=== PATIENT | male | born 1960 | race Caucasian/White ===

== ENCOUNTER 2017-08-18 06:47 | Emergency (ER) | payer MEDICAID ==
[~2017-08-18] VITALS: Ht 190.5 cm; Wt 111.1 kg
[~2017-08-18 06:47] MED LIST: DOXY75CA4
[2017-08-18 07:19] VITALS: BP 136/85
[2017-08-18] MEDS ORDERED: LIDOCAINE 1% HCL (LOCAL ANESTH.) INJ 20ML MDV ONE (07:49)
[2017-08-18] MEDS ORDERED: BACITRACIN-POLYMYXIN B TOPICAL OINT UD TOP ONE ×2 (08:07→08:15)
== END 2017-08-18 08:39 | disposition home or self-care (01) ==
LOC: ER 06:47
DX: S81.811A Laceration without foreign body, right lower leg, initial encounter (principal); Z79.899 Other long term (current) drug therapy; F17.210 Nicotine dependence, cigarettes, uncomplicated; W01.0XXA Fall on same level from slipping, tripping and stumbling without subsequent striking against object, initial encounter; Y93.01 Activity, walking, marching and hiking; Y92.89 Other specified places as the place of occurrence of the external cause; Y99.8 Other external cause status
CPT/HCPCS: 12005; 99283; J2001

== ENCOUNTER 2017-08-21 13:22 | Emergency (ER) | payer MEDICAID ==
[~2017-08-21] VITALS: Ht 190.5 cm; Wt 111.1 kg
[2017-08-21 14:26] VITALS: BP 123/81
[2017-08-21] MEDS ORDERED: NEOMYCIN-BACITRACIN-POLYM UNITDOSE PKG TOP OINT TOP ONE (15:00)
== END 2017-08-21 15:17 | disposition home or self-care (01) ==
LOC: ER 13:22
DX: S81.811D Laceration without foreign body, right lower leg, subsequent encounter (principal); F17.210 Nicotine dependence, cigarettes, uncomplicated; Z79.899 Other long term (current) drug therapy; Z48.02 Encounter for removal of sutures

== ENCOUNTER 2017-09-05 20:08 | Emergency (ER) | payer MEDICAID ==
[~2017-09-05] VITALS: Ht 190.5 cm; Wt 113.4 kg
[2017-09-05 21:28] VITALS: BP 130/82
[2017-09-05] MEDS ORDERED: cefTRIAXone SOD 1,000 MG VL ONE (22:27)
[2017-09-05] MEDS ORDERED: LIDOCAINE 1% HCL (LOCAL ANESTH.) INJ 20ML MDV ONE (22:28)
[2017-09-05] MEDS ORDERED: cefTRIAXone W LIDOCAINE 1 GM IM IM ONE (22:30)
== END 2017-09-05 22:48 | disposition home or self-care (01) ==
LOC: ER 20:08
DX: S81.811D Laceration without foreign body, right lower leg, subsequent encounter (principal); L03.115 Cellulitis of right lower limb; F17.210 Nicotine dependence, cigarettes, uncomplicated; X58.XXXD Exposure to other specified factors, subsequent encounter
CPT/HCPCS: 96372; 99283; J0696; J2001

== ENCOUNTER 2018-05-25 18:16 | Inpatient (IN) | payer SELFPAY ==
[~2018-05-25] VITALS: Ht 190.5 cm; Wt 117.3 kg
[2018-05-25] MEDS ORDERED: IBUPROFEN 600 MG TAB PO ONE (18:30)
[2018-05-25] MEDS ORDERED: VANCOMYCIN 1GM/250ML 250 ML IV ONE (19:00)
[2018-05-25] MEDS ORDERED: ACETAMINOPHEN 325 MG TAB PO ONE (19:00)
[2018-05-25] MEDS ORDERED: SODIUM CHLORIDE 0.9% 1,000 ML IV ONE (19:00)
[2018-05-25] MEDS ORDERED: PROMETHAZINE W/CODEINE 5 ML ORAL SYRUP PO ONE (19:00)
[2018-05-25] MEDS ORDERED: cefTRIAXone 1GM/10ml IVPUSH 10 ML IV ONE (19:00)
[2018-05-25] MEDS ORDERED: fentaNYL CITRATE 100 MCG/2 ML VL IV ONE (19:00)
[2018-05-25] MEDS ORDERED: KETOROLAC TROMETH 30 MG/ML 1ML VIAL IV ONE (19:00)
[2018-05-25 19:46] LABS: Basophils # (auto) 0.1 uL; Basophils % (auto) 0.4 % (0.0-2.0); Eosinophils # (auto) 0 uL; Eosinophils % (auto) 0.1 % (0.0-7.0); Hematocrit 42.6 % (41.0-53.0); Hemoglobin 14.6 g/dL (13.5-17.5); Lymphocytes # (auto) 0.8 uL; Lymphocytes % (auto) 6.7 % (10.0-50.0); Mean Corpuscular Hemoglobin 30.3 pg (28.0-32.0); Mean Corpuscular Hgb Conc. 34.3 g/dL (32.0-36.0); Mean Corpuscular Volume 88.3 fL (80.0-100.0); Monocytes # (auto) 0.9 uL; Monocytes % (auto) 7.4 % (0.0-12.0); Neutrophils # (auto) 10.6 uL; Neutrophils % (auto) 85.4 % (37.0-80.0); Nucleated Red Blood Cells % 0.1 %; Platelet Count (auto) 177 10^3/uL (140-450); Red Blood Cells 4.82 10^6/uL (4.5-5.90); Red Cell Distribution Width 14.5 % (11.8-14.3); White Blood Cell 12.4 10^3/uL (4.4-10.8)
[2018-05-25] MEDS ORDERED: ONDANSETRON HCL 4 MG/2 ML VIAL IV PRN (20:00)
[2018-05-25] MEDS ORDERED: MORPHINE SULF INJ 2 MG/ML SYRINGE 1ML IV PRN (20:00)
[2018-05-25] MEDS ORDERED: ACETAMINOPHEN 325 MG TAB PO PRN (20:00)
[2018-05-25] MEDS ORDERED: ALBUTEROL SULF 2.5 MG/0.5ML(0.5%) NEB SOLN NEB PRN (20:00)
[2018-05-25] MEDS ORDERED: TEMAZEPAM 15 MG CAP PO PRN (20:00)
[2018-05-25 20:07] LABS: Albumin 3.2 g/dL (3.4-5.0); BUN/Creatinine Ratio 13.3; Bilirubin, Total 0.9 mg/dL (0.2-1.0); Calcium 8.4 mg/dL (8.5-10.1); Lactic Acid w/Reflex 2.2 mmol/L (0.4-2.0); Potassium 3.6 mmol/L (3.5-5.1)
[2018-05-25 20:32] VITALS: BP 120/71
[2018-05-25 21:28] VITALS: BP 100/45
[2018-05-25 22:00] VITALS: BP 100/45
[2018-05-25] MEDS: CLINDAMYCIN 600MG IV 50 ML IV SCH (22:57)
[2018-05-25] MEDS: FAMOTIDINE 20 MG TAB PO SCH (22:57)
[2018-05-26 04:59] VITALS: BP 96/61
[2018-05-26 05:57] LABS: Basophils # (auto) 0 uL; Basophils % (auto) 0.4 % (0.0-2.0); Eosinophils # (auto) 0.1 uL; Hematocrit 40.6 % (41.0-53.0); Lymphocytes # (auto) 1.1 uL; Lymphocytes % (auto) 13.2 % (10.0-50.0); Mean Corpuscular Hemoglobin 30.8 pg (28.0-32.0); Mean Corpuscular Hgb Conc. 34.5 g/dL (32.0-36.0); Mean Corpuscular Volume 89.4 fL (80.0-100.0); Monocytes # (auto) 0.7 uL; Monocytes % (auto) 8.3 % (0.0-12.0); Neutrophils # (auto) 6.6 uL; Neutrophils % (auto) 77.1 % (37.0-80.0); Nucleated Red Blood Cells % 0.1 %; Platelet Count (auto) 141 10^3/uL (140-450); Red Blood Cells 4.54 10^6/uL (4.5-5.90); Red Cell Distribution Width 14.6 % (11.8-14.3); White Blood Cell 8.5 10^3/uL (4.4-10.8)
[2018-05-26] MEDS: CLINDAMYCIN 600MG IV 50 ML IV SCH ×3 (06:04→21:55)
[2018-05-26 06:13] LABS: Albumin 2.6 g/dL (3.4-5.0); BUN/Creatinine Ratio 14.6; Bilirubin, Total 0.7 mg/dL (0.2-1.0); Calcium 8.1 mg/dL (8.5-10.1); Potassium 3.9 mmol/L (3.5-5.1); Total Protein 6.9 g/dL (6.4-8.2)
[2018-05-26 08:30] VITALS: BP 98/47
[2018-05-26] MEDS: cefTRIAXone 1GM/10ml IVPUSH 10 ML IV SCH (09:30)
[2018-05-26] MEDS: FAMOTIDINE 20 MG TAB PO SCH ×2 (09:30→21:56)
[2018-05-26] MEDS: ENOXAPARIN SOD 40 MG/0.4 ML SYRINGE SC SCH (09:30)
[2018-05-26 09:34] VITALS: BP 98/47
[2018-05-26] MEDS: HYDROcodone-ACET 5/325MG TAB PO PRN (09:41)
[2018-05-26] MEDS ORDERED: IOHEXOL 350 MG/ML 100ML IJ ONE (11:38)
[2018-05-26] MEDS ORDERED: SODIUM CHLORIDE 0.9% 1,000 ML IV ONE (11:45)
[2018-05-26] MEDS ORDERED: VANCOMYCIN 1GM/250ML 250 ML IV ONE (11:45)
[2018-05-26] MEDS: SODIUM CHLORIDE 0.9% 1,000 ML IV SCH ×2 (11:45→18:41)
[2018-05-26] MEDS ORDERED: VANCOMYCIN PER PHARMACY 0 MG IV SCH (11:45)
[2018-05-26 17:18] VITALS: BP 123/56
[2018-05-26 18:38] LABS: Urine Bacteria NONE SEEN /hpf (None Seen); Urine Blood Negative /uL (Negative); Urine WBC 1 /hpf (0 - 3)
[2018-05-26 18:43] LABS: Urine Specific Gravity > 1.050 (1.001-1.035)
[2018-05-26 18:55] LABS: Alcohol, Urine < 3.0 mg/dL (0-5); Amphetamine Screen, Urine POSITIVE (NEGATIVE); Barbiturate Scree,Urine NEGATIVE (NEGATIVE); Benzodiazephine Screen, Urine NEGATIVE (NEGATIVE); Cannabinoid Screen, Urine POSITIVE (NEGATIVE); Cocaine Screen, Urine NEGATIVE (NEGATIVE); Opiate Scree,Urine POSITIVE (NEGATIVE); Phencyclidine Screen, Urine NEGATIVE (NEGATIVE)
[2018-05-26 22:00] VITALS: BP 112/65
[2018-05-26] MEDS: VANCOMYCIN 1GM/250ML 250 ML IV SCH (23:43)
[2018-05-27] MEDS: SODIUM CHLORIDE 0.9% 1,000 ML IV SCH ×4 (02:41→21:54)
[2018-05-27 04:54] VITALS: BP 111/60
[2018-05-27] MEDS: CLINDAMYCIN 600MG IV 50 ML IV SCH (05:35)
[2018-05-27 08:30] VITALS: BP 120/72
[2018-05-27 09:00] VITALS: BP 120/72
[2018-05-27] MEDS: ENOXAPARIN SOD 40 MG/0.4 ML SYRINGE SC SCH (09:53)
[2018-05-27] MEDS: FAMOTIDINE 20 MG TAB PO SCH ×2 (09:53→22:34)
[2018-05-27] MEDS: cefTRIAXone 1GM/10ml IVPUSH 10 ML IV SCH (09:53)
[2018-05-27 11:14] LABS: Basophils # (auto) 0 uL; Basophils % (auto) 0.4 % (0.0-2.0); Eosinophils # (auto) 0.1 uL; Eosinophils % (auto) 1.1 % (0.0-7.0); Hematocrit 38.4 % (41.0-53.0); Hemoglobin 12.6 g/dL (13.5-17.5); Lymphocytes # (auto) 1.2 uL; Lymphocytes % (auto) 15.2 % (10.0-50.0); Mean Corpuscular Hemoglobin 29.1 pg (28.0-32.0); Mean Corpuscular Hgb Conc. 32.8 g/dL (32.0-36.0); Mean Corpuscular Volume 88.6 fL (80.0-100.0); Monocytes # (auto) 0.8 uL; Monocytes % (auto) 10.4 % (0.0-12.0); Neutrophils # (auto) 5.5 uL; Neutrophils % (auto) 72.9 % (37.0-80.0); Platelet Count (auto) 181 10^3/uL (140-450); Red Blood Cells 4.33 10^6/uL (4.5-5.90); Red Cell Distribution Width 14.5 % (11.8-14.3); White Blood Cell 7.6 10^3/uL (4.4-10.8)
[2018-05-27] MEDS: VANCOMYCIN 1GM/250ML 250 ML IV SCH ×2 (11:36→23:44)
[2018-05-27 13:00] VITALS: BP 113/67
[2018-05-27 17:00] VITALS: BP 121/69
[2018-05-27] MEDS: HYDROcodone-ACET 5/325MG TAB PO PRN (21:54)
[2018-05-27 22:00] VITALS: BP 129/75
[2018-05-28] VITALS (8 sets, daily range): BP systolic 117–155; BP diastolic 71–79
[2018-05-28] MEDS: SODIUM CHLORIDE 0.9% 1,000 ML IV SCH ×4 (05:49→23:59)
[2018-05-28 07:05] LABS: Basophils # (auto) 0 uL; Basophils % (auto) 0.6 % (0.0-2.0); Eosinophils # (auto) 0.1 uL; Hematocrit 39.2 % (41.0-53.0); Hemoglobin 13.2 g/dL (13.5-17.5); Lymphocytes # (auto) 1.3 uL; Lymphocytes % (auto) 18.6 % (10.0-50.0); Mean Corpuscular Hemoglobin 30.1 pg (28.0-32.0); Mean Corpuscular Hgb Conc. 33.6 g/dL (32.0-36.0); Mean Corpuscular Volume 89.5 fL (80.0-100.0); Monocytes # (auto) 0.9 uL; Monocytes % (auto) 12.8 % (0.0-12.0); Neutrophils # (auto) 4.7 uL; Nucleated Red Blood Cells % 0.1 %; Platelet Count (auto) 192 10^3/uL (140-450); Red Blood Cells 4.39 10^6/uL (4.5-5.90); Red Cell Distribution Width 14.8 % (11.8-14.3); White Blood Cell 7.2 10^3/uL (4.4-10.8)
[2018-05-28] MEDS: cefTRIAXone 1GM/10ml IVPUSH 10 ML IV SCH (09:21)
[2018-05-28] MEDS: ENOXAPARIN SOD 40 MG/0.4 ML SYRINGE SC SCH (09:21)
[2018-05-28] MEDS: FAMOTIDINE 20 MG TAB PO SCH ×2 (10:00→22:14)
[2018-05-28 12:28] LABS: Albumin 2.5 g/dL (3.4-5.0); BUN/Creatinine Ratio 12.4; Calcium 8.4 mg/dL (8.5-10.1); Potassium 4.1 mmol/L (3.5-5.1)
[2018-05-28 12:30] LABS: Bilirubin, Total 0.4 mg/dL (0.2-1.0); Total Protein 6.9 g/dL (6.4-8.2)
[2018-05-28] MEDS: VANCOMYCIN 1GM/250ML 250 ML IV SCH ×2 (13:52→20:45)
[2018-05-28] MEDS: HYDROcodone-ACET 5/325MG TAB PO PRN (22:15)
[2018-05-29 04:52] VITALS: BP 118/69
[2018-05-29] MEDS: VANCOMYCIN 1GM/250ML 250 ML IV SCH ×2 (04:57→13:00)
[2018-05-29] MEDS: SODIUM CHLORIDE 0.9% 1,000 ML IV SCH ×2 (06:51→13:05)
[2018-05-29 09:00] VITALS: BP 122/70
[2018-05-29] MEDS: cefTRIAXone 1GM/10ml IVPUSH 10 ML IV SCH (09:54)
[2018-05-29] MEDS: FAMOTIDINE 20 MG TAB PO SCH (09:54)
[2018-05-29] MEDS: ENOXAPARIN SOD 40 MG/0.4 ML SYRINGE SC SCH (09:55)
[2018-05-29 13:00] VITALS: BP 137/76
== END 2018-05-29 15:13 | disposition home or self-care (01) | DRG 872 ==
LOC: ER 18:22 → OVERFLOW 18:23 → WEST WING 21:30
PROVIDERS: ADMIT Nurse Practitioner; ATTEND Family Medicine
DX: A41.9 Sepsis, unspecified organism (principal); J98.11 Atelectasis; L02.416 Cutaneous abscess of left lower limb; L03.116 Cellulitis of left lower limb; E86.0 Dehydration; F12.10 Cannabis abuse, uncomplicated; F15.10 Other stimulant abuse, uncomplicated; F17.210 Nicotine dependence, cigarettes, uncomplicated; J06.9 Acute upper respiratory infection, unspecified; J44.9 Chronic obstructive pulmonary disease, unspecified; R79.1 Abnormal coagulation profile; Z71.51 Drug abuse counseling and surveillance of drug abuser
CPT/HCPCS: 36415; 71045; 71275; 80053; 80202; 80307; 80320; 81001; 83605; 85025; 85379; 87040; 93971; 96361; 96365; 96375; A6257; J0696; J1885; J3490